=== PATIENT | female | born 1975 | race Hispanic/Latino ===

== ENCOUNTER 2022-01-15 16:43 | Inpatient (IN) | payer MEDICAID, OTHER ==
[~2022-01-15] VITALS: Ht 157.5 cm; Wt 144.7 kg
[2022-01-15 17:31] LABS: APPEARANCE,URINE Clear (CLEAR); BILIRUBIN,URINE Negative (NEGATIVE); COLOR,URINE Yellow (YELLOW); GLUCOSE, URINE (UA) >=1000 mg/dL (NEGATIVE); KETONES,URINE Trace mg/dL (NEGATIVE); LEUKOCYTE ESTERASE ,URINE Small (NEGATIVE); NITRATE,URINE Negative (NEGATIVE); OCCULT BLOOD,URINE Trace (NEGATIVE); PH,URINE 6.5 (5.0-8.0); PROTEIN,URINE Trace mg/dL (NEGATIVE)
[2022-01-15 17:35] LABS: BASOPHILS % (AUTO) 0.3 % (0.0-5.0); LYMPHOCYTES % (AUTO) 17.8 % (21.0-51.0); MEAN CORPUSCULAR HEMOGLOBIN 20.2 pg (27.0-33.0); MEAN CORPUSCULAR HGB CONC 29.2 g/dL (32.0-36.0); MEAN CORPUSCULAR VOLUME 69.4 fL (79-99); MONOCYTES % (AUTO) 5.7 % (3.0-13.0); NEUTROPHILS % (AUTO) 74.9 % (40.0-77.0); PLATELET COUNT (AUTO) 350 K/uL (130-400); RED BLOOD CELL COUNT(AUTO) 5.19 MIL/uL (4.00-5.50); RED CELL DISTRIBUTION WIDTH 21.7 % (11.0-15.5); WHITE BLOOD COUNT (AUTO) 15.2 K/uL (4.8-10.8)
[2022-01-15 17:41] LABS: RBC,URINE 0-1 /HPF (0-1)
[2022-01-15 17:43] LABS: BACTERIA,URINE Few /HPF (None Seen); SQUAMOUS EPITHELIAL CELL,UR Few /HPF (0-2)
[2022-01-15 17:54] LABS: ALBUMIN 2.9 g/dL (3.5-5.0); BILIRUBIN,TOTAL 0.3 mg/dL (0.2-1.0); POTASSIUM 3.8 mmol/L (3.5-5.1); TOTAL PROTEIN, SERUM 7.5 g/dL (6.0-8.3)
[2022-01-15] MEDS ORDERED: MORPHINE 4 MG SYG IM ONE (18:00)
[2022-01-15] MEDS ORDERED: IBUPROFEN 100 MG/5 ML SUSP UDCUP ONE (20:01)
[2022-01-15] MEDS: ZOSYN 3.375GM +NS 50ML IV SCH (21:30)
[2022-01-15] MEDS ORDERED: GLUCAGON 1MG KIT 1 MG ML IM PRN (21:30)
[2022-01-15] MEDS ORDERED: DEXTROSE 50%-WATER 50 ML DISP.SYRIN IV PRN (21:30)
[2022-01-15] MEDS ORDERED: ONDANSETRON 4MG INJ IV PRN (22:00)
[2022-01-15] MEDS ORDERED: 0.9%NACL 1000ML 1,000 ML IV SCH (22:00)
[2022-01-15] MEDS ORDERED: ACETAMINOPHEN 325 MG TAB PO PRN (22:00)
[2022-01-15] MEDS ORDERED: NITROGLYCERIN 0.4 MG SL TAB SL PRN (22:00)
[2022-01-15 22:29] LABS: CRP QUANTITATIVE 41.6 mg/L (0.00-9.0)
[2022-01-15 22:30] LABS: HEMOGLOBIN A1C 11.4 % (4.0-6.0)
[2022-01-15 22:34] LABS: INR 0.93 (0.85-1.15); PROTHROMBIN TIME 10.1 SEC (9.6-11.6)
[2022-01-15] MEDS: 0.9%NACL 1000ML 1,000 ML IV SCH (23:00)
[2022-01-15] MEDS: MORPHINE 4 MG SYG IV PRN (23:30)
[2022-01-16] VITALS (7 sets, daily range): BP systolic 119–131; BP diastolic 49–76
[2022-01-16] MEDS: MORPHINE 2 MG SYG IV PRN ×4 (03:44→20:19)
[2022-01-16] MEDS: ZOSYN 3.375GM +NS 50ML IV SCH ×3 (05:55→21:07)
[2022-01-16 06:16] LABS: HEMATOCRIT 30.8 % (36-48); MEAN CORPUSCULAR HEMOGLOBIN 20.5 pg (27.0-33.0); MEAN CORPUSCULAR HGB CONC 29.5 g/dL (32.0-36.0); MEAN CORPUSCULAR VOLUME 69.5 fL (79-99); PLATELET COUNT (AUTO) 331 K/uL (130-400); RED BLOOD CELL COUNT(AUTO) 4.43 MIL/uL (4.00-5.50); RED CELL DISTRIBUTION WIDTH 21.2 % (11.0-15.5); WHITE BLOOD COUNT (AUTO) 12.6 K/uL (4.8-10.8)
[2022-01-16 06:34] LABS: ALBUMIN 2.6 g/dL (3.5-5.0); BILIRUBIN,TOTAL 0.4 mg/dL (0.2-1.0); CREATININE 0.6 mg/dL (0.5-1.5); MAGNESIUM 1.5 mg/dL (1.80-2.40); POTASSIUM 3.5 mmol/L (3.5-5.1); TOTAL PROTEIN, SERUM 6.6 g/dL (6.0-8.3)
[2022-01-16 07:15] LABS: EOSINOPHILS % (MANUAL) 2 % (1-6); LYMPHOCYTES % (MANUAL) 21 % (22-44); MAN.DIFF COMMENT-IMPRESSION MANUAL DIFFERENTIAL; MONOCYTES % (MANUAL) 2 % (2-9); SEGMENTED NEUTROPHILS % 75 % (40-70)
[2022-01-16 07:27] LABS: PLATELET MORPHOLOGY COMMENT ADEQUATE
[2022-01-16] MEDS ORDERED: INSULIN HUMULIN R 100 UNIT/ML 3ML SQ SCH ×2 (07:30→17:00)
[2022-01-16] MEDS: FAMOTIDINE 20MG TAB PO SCH ×2 (08:21→21:07)
[2022-01-16] MEDS: ENOXAPARIN SODIUM 40 MG/0.4 ML SYRINGE SQ SCH (09:00)
[2022-01-16] MEDS: 0.9%NACL 1000ML 1,000 ML IV SCH ×2 (12:00→18:00)
[2022-01-16] MEDS ORDERED: POTASSIUM CHLORIDE 10% ELIXIR 20 MEQ/15 ML UDCUP PO PRN (15:30)
[2022-01-16] MEDS ORDERED: POTASSIUM CHLORIDE 20MEQ/100ML 100 ML IV PRN (15:30)
[2022-01-16] MEDS ORDERED: KCL 20 MEQ ERTAB PO PRN (15:30)
[2022-01-16] MEDS ORDERED: LIDOCAINE HCL-MPF 1% 2ML VIAL IV PRN (15:30)
[2022-01-16] MEDS: INSULIN HUMULIN R 100 UNIT/ML 3ML SQ SCH ×3 (17:28→20:29)
[2022-01-16] MEDS: MORPHINE 4 MG SYG IV PRN (18:58)
[2022-01-16] MEDS ORDERED: INSULIN GLARGINE 100 UNITS/ML 10 ML VIAL SQ SCH ×2 (21:00)
[2022-01-17] MEDS: MORPHINE 2 MG SYG IV PRN (02:57)
[2022-01-17 03:57] VITALS: BP 136/75
[2022-01-17] MEDS: 0.9%NACL 1000ML 1,000 ML IV SCH (04:00)
[2022-01-17 05:41] LABS: BASOPHILS % (AUTO) 0.3 % (0.0-5.0); EOSINOPHILS % (AUTO) 1.7 % (0.0-8.0); HEMATOCRIT 34.5 % (36-48); LYMPHOCYTES % (AUTO) 23.5 % (21.0-51.0); MEAN CORPUSCULAR HEMOGLOBIN 20.2 pg (27.0-33.0); MEAN CORPUSCULAR HGB CONC 28.7 g/dL (32.0-36.0); MEAN CORPUSCULAR VOLUME 70.3 fL (79-99); MONOCYTES % (AUTO) 6.1 % (3.0-13.0); PLATELET COUNT (AUTO) 309 K/uL (130-400); RED BLOOD CELL COUNT(AUTO) 4.91 MIL/uL (4.00-5.50); RED CELL DISTRIBUTION WIDTH 21.2 % (11.0-15.5); WHITE BLOOD COUNT (AUTO) 9.8 K/uL (4.8-10.8)
[2022-01-17] MEDS: ZOSYN 3.375GM +NS 50ML IV SCH (05:42)
[2022-01-17 05:52] LABS: ALBUMIN 2.7 g/dL (3.5-5.0); BILIRUBIN,TOTAL 0.3 mg/dL (0.2-1.0); CREATININE 0.6 mg/dL (0.5-1.5); POTASSIUM 3.4 mmol/L (3.5-5.1)
[2022-01-17] MEDS: INSULIN HUMULIN R 100 UNIT/ML 3ML SQ SCH ×4 (06:29→12:30)
[2022-01-17 08:00] VITALS: BP 149/77
[2022-01-17] MEDS ORDERED: LIDOCAINE HCL-MPF 1% 2ML VIAL IV PRN (08:30)
[2022-01-17] MEDS ORDERED: KCL 20 MEQ ERTAB PO PRN (08:30)
[2022-01-17] MEDS ORDERED: MAGNESIUM 2GM PREMIX 50ML 50 ML IV PRN (08:30)
[2022-01-17] MEDS ORDERED: POTASSIUM CHLORIDE 10% ELIXIR 20 MEQ/15 ML UDCUP PO PRN (08:30)
[2022-01-17] MEDS ORDERED: POTASSIUM CHLORIDE 20MEQ/100ML 100 ML IV PRN (08:30)
[2022-01-17] MEDS: FAMOTIDINE 20MG TAB PO SCH (08:51)
[2022-01-17] MEDS: ENOXAPARIN SODIUM 40 MG/0.4 ML SYRINGE SQ SCH (08:51)
[2022-01-17] MEDS ORDERED: AMOX-426 PO (09:11)
[2022-01-17 12:00] VITALS: BP 128/78
== END 2022-01-17 12:25 | disposition home or self-care (01) | DRG 872 ==
LOC: EDH 16:43 → EDHIP 16:44 → 3CH 01-16 00:20
PROVIDERS: ADMIT Hospitalist; ATTEND Hospitalist
DX: A41.9 Sepsis, unspecified organism (principal); N39.0 Urinary tract infection, site not specified; Z68.43 Body mass index [BMI] 50.0-59.9, adult; K52.9 Noninfective gastroenteritis and colitis, unspecified; K43.9 Ventral hernia without obstruction or gangrene; E11.65 Type 2 diabetes mellitus with hyperglycemia; F41.9 Anxiety disorder, unspecified; Z20.822 Contact with and (suspected) exposure to COVID-19; E66.01 Morbid (severe) obesity due to excess calories; Z82.49 Family history of ischemic heart disease and other diseases of the circulatory system; Z90.49 Acquired absence of other specified parts of digestive tract; Z83.3 Family history of diabetes mellitus
CPT/HCPCS: 36415; 74176; 76856; 80053; 81001; 82150; 82948; 83036; 83605; 83690; 83735; 84145; 85025; 85610; 85651; 86140; 87040; 87088; 87635; 93005; G0378; J1650; J1815; J2270; J2543; J3475

== ENCOUNTER 2022-01-22 15:01 | Emergency (ER) | payer OTHER ==
[~2022-01-22] VITALS: Ht 157.5 cm; Wt 140.6 kg
[~2022-01-22 15:01] MED LIST: AMOX-426 PO
[2022-01-22 17:25] LABS: APPEARANCE,URINE Clear (CLEAR); BILIRUBIN,URINE Negative (NEGATIVE); COLOR,URINE Yellow (YELLOW); GLUCOSE, URINE (UA) >=1000 mg/dL (NEGATIVE); KETONES,URINE Trace mg/dL (NEGATIVE); LEUKOCYTE ESTERASE ,URINE Negative (NEGATIVE); NITRATE,URINE Negative (NEGATIVE); OCCULT BLOOD,URINE Negative (NEGATIVE); PH,URINE 6.5 (5.0-8.0); PROTEIN,URINE Negative (NEGATIVE); UROBILINOGEN,URINE 0.2 mg/dL (0.2-1.0)
[2022-01-22 17:31] LABS: HCG,QUALITATIVE URINE NEGATIVE (NEGATIVE)
[2022-01-22 17:41] LABS: BASOPHILS % (AUTO) 0.4 % (0.0-5.0); EOSINOPHILS % (AUTO) 1.3 % (0.0-8.0); HEMATOCRIT 35.4 % (36-48); LYMPHOCYTES % (AUTO) 25.3 % (21.0-51.0); MEAN CORPUSCULAR HEMOGLOBIN 20.6 pg (27.0-33.0); MEAN CORPUSCULAR HGB CONC 29.4 g/dL (32.0-36.0); MEAN CORPUSCULAR VOLUME 70.1 fL (79-99); MONOCYTES % (AUTO) 5.1 % (3.0-13.0); NEUTROPHILS % (AUTO) 67.5 % (40.0-77.0); PLATELET COUNT (AUTO) 355 K/uL (130-400); RED BLOOD CELL COUNT(AUTO) 5.05 MIL/uL (4.00-5.50); RED CELL DISTRIBUTION WIDTH 21.4 % (11.0-15.5); WHITE BLOOD COUNT (AUTO) 11.2 K/uL (4.8-10.8)
[2022-01-22 17:43] LABS: BACTERIA,URINE Rare /HPF (None Seen); RBC,URINE 0-1 /HPF (0-1); SQUAMOUS EPITHELIAL CELL,UR Few /HPF (0-2); WBC,URINE 0-1 /HPF (0-1)
[2022-01-22 17:57] LABS: CREATININE 0.6 mg/dL (0.5-1.5); POTASSIUM 3.5 mmol/L (3.5-5.1); TOTAL PROTEIN, SERUM 7.3 g/dL (6.0-8.3)
[2022-01-22] MEDS ORDERED: KETOROLAC 30MG VIAL (30MG/ML) IVP ONE (18:30)
[2022-01-22] MEDS ORDERED: 0.9%NACL 1000ML 1,000 ML IV ONE (19:00)
[2022-01-22] MEDS ORDERED: IBUP-1493 PO (19:47)
[2022-01-22 20:01] VITALS: BP 142/59
== END 2022-01-22 20:43 | disposition home or self-care (01) ==
LOC: EDH 15:01
DX: K43.9 Ventral hernia without obstruction or gangrene (principal); E11.9 Type 2 diabetes mellitus without complications; Z79.1 Long term (current) use of non-steroidal anti-inflammatories (NSAID)
CPT/HCPCS: 99284; 74176; 96374; 96361; 80053; 85025; 82948; 81001; 81025; 36415; J7030; J1885

== ENCOUNTER 2022-05-18 21:06 | Emergency (ER) | payer OTHER ==
[~2022-05-18] VITALS: Ht 157.5 cm; Wt 145.1 kg
[~2022-05-18 21:06] MED LIST changes: +IBUP-1493 PO
[2022-05-18 21:08] VITALS: BP 141/87
== END 2022-05-18 22:11 | disposition home or self-care (01) ==
LOC: EDH 21:06
DX: K42.9 Umbilical hernia without obstruction or gangrene (principal); E11.9 Type 2 diabetes mellitus without complications; Z98.890 Other specified postprocedural states; Z79.899 Other long term (current) drug therapy

== ENCOUNTER 2022-06-24 16:21 | Inpatient (IN) | payer OTHER ==
[~2022-06-24] VITALS: Ht 167.6 cm; Wt 136.1 kg
[2022-06-24 17:08] LABS: BASOPHILS % (AUTO) 0.2 % (0.0-5.0); EOSINOPHILS % (AUTO) 1.4 % (0.0-8.0); HEMATOCRIT 39.6 % (36-48); LYMPHOCYTES % (AUTO) 20.9 % (21.0-51.0); MEAN CORPUSCULAR HEMOGLOBIN 23.2 pg (27.0-33.0); MEAN CORPUSCULAR HGB CONC 30.6 g/dL (32.0-36.0); MEAN CORPUSCULAR VOLUME 75.9 fL (79-99); MONOCYTES % (AUTO) 5.5 % (3.0-13.0); NEUTROPHILS % (AUTO) 71.6 % (40.0-77.0); PLATELET COUNT (AUTO) 373 K/uL (130-400); RED BLOOD CELL COUNT(AUTO) 5.22 MIL/uL (4.00-5.50); RED CELL DISTRIBUTION WIDTH 17.8 % (11.0-15.5); WHITE BLOOD COUNT (AUTO) 14.8 K/uL (4.8-10.8)
[2022-06-24 17:19] LABS: APPEARANCE,URINE CLOUDY (CLEAR); BILIRUBIN,URINE NEGATIVE (NEGATIVE); COLOR,URINE LIGHT-YELLOW (YELLOW); GLUCOSE, URINE (UA) NEGATIVE (NEGATIVE); KETONES,URINE NEGATIVE (NEGATIVE); LEUKOCYTE ESTERASE ,URINE 75 Leu/uL (NEGATIVE); NITRATE,URINE NEGATIVE (NEGATIVE); OCCULT BLOOD,URINE NEGATIVE (NEGATIVE); PROTEIN,URINE NEGATIVE (NEGATIVE); UROBILINOGEN,URINE 0.2 mg/dL (0.2-1.0)
[2022-06-24 17:21] LABS: CREATININE 0.6 mg/dL (0.5-1.5); POTASSIUM 3.9 mmol/L (3.5-5.1)
[2022-06-24 17:26] LABS: ALBUMIN 3.2 g/dL (3.5-5.0); TOTAL PROTEIN, SERUM 7.5 g/dL (6.0-8.3)
[2022-06-24 17:31] LABS: MUCUS,URINE RARE LPF (None Seen); OTHER CASTS, URINE 1 /LPF (None Seen); SQUAMOUS EPITHELIAL CELL,UR MOD /HPF (0-2)
[2022-06-24] MEDS ORDERED: HYDROCODONE/ACETAMINOPHEN 5/325 MG TAB PO ONE (18:00)
[2022-06-24] MEDS ORDERED: 0.9%NACL 1000ML 1,000 ML IV ONE (18:30)
[2022-06-24] MEDS ORDERED: IOHEXOL 350 MG/ML 100ML INFUS..BTL IV ONE (18:57)
[2022-06-24] MEDS ORDERED: KETOROLAC 15MG/ML VIAL (15MG/ML) IV ONE (19:00)
[2022-06-24] MEDS ORDERED: ZOSYN 3.375GM +NS 50ML IV ONE (21:00)
[2022-06-24] MEDS ORDERED: MORPHINE 4 MG SYG IVP ONE (21:00)
[2022-06-24] MEDS ORDERED: ONDANSETRON 4MG INJ IV PRN (22:00)
[2022-06-24] MEDS ORDERED: MORPHINE 2 MG SYG IV PRN (22:00)
[2022-06-24] MEDS: LACTATED RINGERS 1000ML 1,000 ML IV SCH (23:45)
[2022-06-25 03:37] VITALS: BP 121/62
[2022-06-25] MEDS ORDERED: ACET500P24 PO (04:07)
[2022-06-25] MEDS ORDERED: SERT-439 PO (04:07)
[2022-06-25] MEDS ORDERED: TRAM50TA4 PO (04:07)
[2022-06-25] MEDS ORDERED: BACI1CAP14 PO (04:07)
[2022-06-25] MEDS ORDERED: MV-M1TAB20 PO (04:07)
[2022-06-25] MEDS ORDERED: CLON1TAB12 PO (04:07)
[2022-06-25] MEDS ORDERED: CALC-1290 PO (04:07)
[2022-06-25] MEDS: ZOSYN 3.375GM+NS 50ML 50 ML IV SCH ×3 (04:57→20:30)
[2022-06-25 07:01] LABS: BASOPHILS % (AUTO) 0.2 % (0.0-5.0); EOSINOPHILS % (AUTO) 2.1 % (0.0-8.0); HEMATOCRIT 36.8 % (36-48); LYMPHOCYTES % (AUTO) 25.2 % (21.0-51.0); MEAN CORPUSCULAR HGB CONC 29.6 g/dL (32.0-36.0); MEAN CORPUSCULAR VOLUME 77.8 fL (79-99); MONOCYTES % (AUTO) 6.6 % (3.0-13.0); NEUTROPHILS % (AUTO) 65.5 % (40.0-77.0); PLATELET COUNT (AUTO) 319 K/uL (130-400); RED BLOOD CELL COUNT(AUTO) 4.73 MIL/uL (4.00-5.50); WHITE BLOOD COUNT (AUTO) 10.1 K/uL (4.8-10.8)
[2022-06-25 07:11] LABS: CREATININE 0.6 mg/dL (0.5-1.5); MAGNESIUM 1.7 mg/dL (1.80-2.40); PHOSPHORUS 4.6 mg/dL (2.5-4.9)
[2022-06-25 07:12] LABS: INR 0.93 (0.85-1.15); PROTHROMBIN TIME 10.1 SEC (9.6-11.6)
[2022-06-25 07:13] LABS: PARTIAL THROMBOPLASTIN TIME 26.2 SEC (26.3-35.5)
[2022-06-25 07:19] VITALS: BP 97/69
[2022-06-25] MEDS: FAMOTIDINE 20MG VIAL IV SCH ×2 (07:58→20:30)
[2022-06-25] MEDS: MORPHINE 4 MG SYG IV PRN ×3 (07:59→18:56)
[2022-06-25] MEDS ORDERED: MAGNESIUM 2GM PREMIX 50ML 50 ML IV SCH (08:00)
[2022-06-25 11:54] VITALS: BP 105/45
[2022-06-25] MEDS ORDERED: FLU VACC QS2022-23(6MOS UP)/PF 60 MCG/0.5 ML ML IM ONE ×2 (12:00→18:13)
[2022-06-25 15:38] VITALS: BP 125/67
[2022-06-25] MEDS: LACTATED RINGERS 1000ML 1,000 ML IV SCH (17:23)
[2022-06-25] MEDS ORDERED: LACTULOSE 20 GM/30 ML UDCUP PO SCH (17:30)
[2022-06-25 19:29] VITALS: BP 147/77
[2022-06-25] MEDS ORDERED: LACTULOSE 20 GM/30 ML UDCUP PO ONE (23:00)
[2022-06-25 23:28] VITALS: BP 135/80
[2022-06-26] MEDS: MORPHINE 4 MG SYG IV PRN ×2 (01:12→11:21)
[2022-06-26 03:31] VITALS: BP 131/75
[2022-06-26] MEDS: ZOSYN 3.375GM+NS 50ML 50 ML IV SCH ×2 (05:01→13:00)
[2022-06-26] MEDS: LACTATED RINGERS 1000ML 1,000 ML IV SCH (05:06)
[2022-06-26 05:54] LABS: BASOPHILS % (AUTO) 0.3 % (0.0-5.0); EOSINOPHILS % (AUTO) 1.7 % (0.0-8.0); HEMATOCRIT 34.1 % (36-48); LYMPHOCYTES % (AUTO) 19.9 % (21.0-51.0); MEAN CORPUSCULAR HEMOGLOBIN 23.5 pg (27.0-33.0); MEAN CORPUSCULAR HGB CONC 31.4 g/dL (32.0-36.0); MEAN CORPUSCULAR VOLUME 74.9 fL (79-99); MONOCYTES % (AUTO) 6.4 % (3.0-13.0); NEUTROPHILS % (AUTO) 71.4 % (40.0-77.0); PLATELET COUNT (AUTO) 321 K/uL (130-400); RED BLOOD CELL COUNT(AUTO) 4.55 MIL/uL (4.00-5.50); RED CELL DISTRIBUTION WIDTH 17.9 % (11.0-15.5); WHITE BLOOD COUNT (AUTO) 9.5 K/uL (4.8-10.8)
[2022-06-26 06:07] LABS: CREATININE 0.7 mg/dL (0.5-1.5); MAGNESIUM 1.9 mg/dL (1.80-2.40); POTASSIUM 4.1 mmol/L (3.5-5.1)
[2022-06-26 07:25] VITALS: BP 102/47
[2022-06-26] MEDS: FAMOTIDINE 20MG VIAL IV SCH (08:25)
[2022-06-26 12:01] VITALS: BP 123/62
[2022-06-26] MEDS ORDERED: LEVO-70 PO (15:12)
== END 2022-06-26 13:05 | disposition home or self-care (01) | DRG 394 ==
LOC: EDH 16:21 → EDHIP 16:22 → WSH 06-25 03:45 → UNDODISIN 06-26 13:05
PROVIDERS: ADMIT Hospitalist; ATTEND Hospitalist
DX: K43.6 Other and unspecified ventral hernia with obstruction, without gangrene (principal); N39.0 Urinary tract infection, site not specified; Z68.42 Body mass index [BMI] 45.0-49.9, adult; Z20.822 Contact with and (suspected) exposure to COVID-19; E11.9 Type 2 diabetes mellitus without complications; E66.01 Morbid (severe) obesity due to excess calories; I10 Essential (primary) hypertension; Z53.20 Procedure and treatment not carried out because of patient's decision for unspecified reasons; K80.20 Calculus of gallbladder without cholecystitis without obstruction; Z51.5 Encounter for palliative care; Z93.3 Colostomy status; Z86.73 Personal history of transient ischemic attack (TIA), and cerebral infarction without residual deficits; Z82.49 Family history of ischemic heart disease and other diseases of the circulatory system; Z23 Encounter for immunization
CPT/HCPCS: 36415; 74177; 76705; 80048; 80053; 81001; 81025; 83690; 83735; 84100; 85025; 85610; 85730; 86850; 86900; 86901; 87040; 87088; 87635; 93005; G0378; J1885; J2270; J2405; J2543; J3475; J3490; J7030; J7120; Q2035; Q9967

== ENCOUNTER 2022-08-21 00:26 | Observation (INO) | payer OTHER ==
[~2022-08-21] VITALS: Ht 157.5 cm; Wt 144.3 kg
[~2022-08-21 00:26] MED LIST changes: +ACET500P24 PO; +BACI1CAP14 PO; +CALC-1290 PO; +CLON1TAB12 PO; +LEVO-70 PO; +MV-M1TAB20 PO; +SERT-439 PO; +TRAM50TA4 PO
[2022-08-21 01:39] LABS: BASOPHILS % (AUTO) 0.1 % (0.0-5.0); HEMATOCRIT 38.6 % (36-48); LYMPHOCYTES % (AUTO) 24.4 % (21.0-51.0); MEAN CORPUSCULAR HEMOGLOBIN 22.9 pg (27.0-33.0); MEAN CORPUSCULAR HGB CONC 31.6 g/dL (32.0-36.0); MEAN CORPUSCULAR VOLUME 72.4 fL (79-99); MONOCYTES % (AUTO) 4.5 % (3.0-13.0); NEUTROPHILS % (AUTO) 69.6 % (40.0-77.0); PLATELET COUNT (AUTO) 383 K/uL (130-400); RED BLOOD CELL COUNT(AUTO) 5.33 MIL/uL (4.00-5.50); RED CELL DISTRIBUTION WIDTH 17.8 % (11.0-15.5); WHITE BLOOD COUNT (AUTO) 13.5 K/uL (4.8-10.8)
[2022-08-21 01:53] LABS: ALBUMIN 3.3 g/dL (3.5-5.0)
[2022-08-21 02:09] LABS: APPEARANCE,URINE CLEAR (CLEAR); BILIRUBIN,URINE NEGATIVE (NEGATIVE); COLOR,URINE COLORLESS (YELLOW); GLUCOSE, URINE (UA) >=1000 mg/dL (NEGATIVE); KETONES,URINE NEGATIVE (NEGATIVE); LEUKOCYTE ESTERASE ,URINE NEGATIVE Leu/uL (NEGATIVE); NITRATE,URINE NEGATIVE (NEGATIVE); OCCULT BLOOD,URINE NEGATIVE (NEGATIVE); PROTEIN,URINE NEGATIVE (NEGATIVE); UROBILINOGEN,URINE 0.2 mg/dL (0.2-1.0)
[2022-08-21 02:12] LABS: RBC,URINE 0-1 /HPF (0-1); SQUAMOUS EPITHELIAL CELL,UR RARE /HPF (0-2); WBC,URINE 0-1 /HPF (0-1)
[2022-08-21] MEDS ORDERED: 0.9%NACL 1000ML 1,000 ML IV ONE (02:30)
[2022-08-21] MEDS ORDERED: KETOROLAC 60 MG VIAL (30MG/ML) IM ONE (03:00)
[2022-08-21] MEDS ORDERED: INSULIN HUMULIN R 100 UNIT/ML 3ML IV ONE ×2 (03:30→05:30)
[2022-08-21] MEDS ORDERED: POTASSIUM CHLORIDE 20MEQ/100ML 100 ML IV PRN (05:30)
[2022-08-21] MEDS ORDERED: KETOROLAC 30MG VIAL (30MG/ML) IVP PRN (05:30)
[2022-08-21] MEDS ORDERED: LIDOCAINE HCL-MPF 1% 2ML VIAL IV PRN (05:30)
[2022-08-21] MEDS ORDERED: ONDANSETRON 4MG INJ IV PRN (05:30)
[2022-08-21 07:19] LABS: INR 0.93 (0.85-1.15); PROTHROMBIN TIME 9.7 SEC (9.6-11.6)
[2022-08-21 07:20] LABS: PARTIAL THROMBOPLASTIN TIME 23.8 SEC (26.3-35.5)
[2022-08-21 07:23] LABS: MAGNESIUM 1.5 mg/dL (1.80-2.40)
[2022-08-21] MEDS: LACTATED RINGERS 1000ML 1,000 ML IV SCH ×2 (07:31→22:38)
[2022-08-21] MEDS: INSULIN HUMULIN R 100 UNIT/ML 3ML SQ SCH ×4 (07:40→21:00)
[2022-08-21] MEDS ORDERED: HYDROMORPHONE 0.5 MG SYG (0.5MG/0.5ML) IVP SCH (08:00)
[2022-08-21 08:05] LABS: HEMOGLOBIN A1C 10.2 % (4.0-6.0)
[2022-08-21] MEDS: FAMOTIDINE 20MG VIAL IV SCH ×2 (08:25→21:34)
[2022-08-21] MEDS: ENOXAPARIN SODIUM 40 MG/0.4 ML SYRINGE SQ SCH (08:25)
[2022-08-21] MEDS: MAGNESIUM 2GM PREMIX 50ML 50 ML IV PRN (10:42)
[2022-08-21 21:47] VITALS: BP 148/93
[2022-08-22] VITALS: BP 123/64
[2022-08-22 04:00] VITALS: BP 124/65
[2022-08-22 05:01] LABS: BASOPHILS % (AUTO) 0.3 % (0.0-5.0); EOSINOPHILS % (AUTO) 1.8 % (0.0-8.0); HEMATOCRIT 34.2 % (36-48); LYMPHOCYTES % (AUTO) 24.3 % (21.0-51.0); MEAN CORPUSCULAR HEMOGLOBIN 22.7 pg (27.0-33.0); MEAN CORPUSCULAR HGB CONC 30.4 g/dL (32.0-36.0); MEAN CORPUSCULAR VOLUME 74.7 fL (79-99); MONOCYTES % (AUTO) 4.8 % (3.0-13.0); NEUTROPHILS % (AUTO) 68.5 % (40.0-77.0); PLATELET COUNT (AUTO) 323 K/uL (130-400); RED BLOOD CELL COUNT(AUTO) 4.58 MIL/uL (4.00-5.50); RED CELL DISTRIBUTION WIDTH 17.5 % (11.0-15.5); WHITE BLOOD COUNT (AUTO) 9.7 K/uL (4.8-10.8)
[2022-08-22 05:14] LABS: CREATININE 0.6 mg/dL (0.5-1.5); MAGNESIUM 1.7 mg/dL (1.80-2.40); POTASSIUM 3.5 mmol/L (3.5-5.1)
[2022-08-22] MEDS: INSULIN HUMULIN R 100 UNIT/ML 3ML SQ SCH (05:54)
[2022-08-22] MEDS: MAGNESIUM 2GM PREMIX 50ML 50 ML IV PRN (06:35)
[2022-08-22 08:00] VITALS: BP 132/73
[2022-08-22] MEDS: ENOXAPARIN SODIUM 40 MG/0.4 ML SYRINGE SQ SCH (09:00)
[2022-08-22] MEDS ORDERED: LACTULOSE 20 GM/30 ML UDCUP PO SCH (09:00)
[2022-08-22] MEDS: FAMOTIDINE 20MG VIAL IV SCH (09:17)
[2022-08-22] MEDS ORDERED: LEVO-70 PO (09:47)
[2022-08-23] MEDS ORDERED: MAGNESIUM OXIDE 400 MG TABLET PO SCH (09:00)
== END 2022-08-22 13:05 | disposition home or self-care (01) ==
LOC: EDH 00:26 → EDHIP 00:27 → INTOOBSV 00:27 → 4DH 21:39
PROVIDERS: ADMIT Internal Medicine; ATTEND Internal Medicine
DX: R10.9 Unspecified abdominal pain (principal); Z20.822 Contact with and (suspected) exposure to COVID-19; E11.65 Type 2 diabetes mellitus with hyperglycemia; D72.829 Elevated white blood cell count, unspecified; K43.9 Ventral hernia without obstruction or gangrene; E66.01 Morbid (severe) obesity due to excess calories; K80.10 Calculus of gallbladder with chronic cholecystitis without obstruction; F41.9 Anxiety disorder, unspecified; Z51.5 Encounter for palliative care; Z86.73 Personal history of transient ischemic attack (TIA), and cerebral infarction without residual deficits; Z93.3 Colostomy status; Z79.899 Other long term (current) drug therapy; Z98.890 Other specified postprocedural states; Z68.43 Body mass index [BMI] 50.0-59.9, adult; Z79.4 Long term (current) use of insulin
CPT/HCPCS: 96376 ×2; 96372 ×2; 96361 ×2; 96365; 96366; 96375 ×2; 99284; 83036; 83735 ×2; 84100; 84484; 80053; 83690; 85025 ×2; 85610; 85730; 86850; 86900; 86901; 87040 ×2; 82948 ×7; 81001; 81025; 36415 ×2; 87635; 74018; 74176; 78226; 93005; 80048; G0378 ×22; J3475 ×2; J7120 ×2; J3490 ×3; J7030; J1885 ×3; J1650; J1815 ×3; J1170; A9537

== ENCOUNTER 2022-08-23 14:16 | Observation (INO) | payer OTHER ==
[~2022-08-23] VITALS: Ht 157.5 cm; Wt 144.1 kg
[~2022-08-23 14:16] MED LIST changes: -AMOX-426 PO
[2022-08-23 15:53] LABS: BASOPHILS % (AUTO) 0.3 % (0.0-5.0); LYMPHOCYTES % (AUTO) 21.3 % (21.0-51.0); MEAN CORPUSCULAR HEMOGLOBIN 22.6 pg (27.0-33.0); MEAN CORPUSCULAR HGB CONC 30.6 g/dL (32.0-36.0); MEAN CORPUSCULAR VOLUME 73.8 fL (79-99); MONOCYTES % (AUTO) 5.5 % (3.0-13.0); NEUTROPHILS % (AUTO) 71.5 % (40.0-77.0); PLATELET COUNT (AUTO) 299 K/uL (130-400); RED BLOOD CELL COUNT(AUTO) 4.61 MIL/uL (4.00-5.50); RED CELL DISTRIBUTION WIDTH 17.6 % (11.0-15.5); WHITE BLOOD COUNT (AUTO) 11.1 K/uL (4.8-10.8)
[2022-08-23 15:54] LABS: APPEARANCE,URINE CLEAR (CLEAR); BILIRUBIN,URINE NEGATIVE (NEGATIVE); COLOR,URINE YELLOW (YELLOW); GLUCOSE, URINE (UA) >=1000 mg/dL (NEGATIVE); KETONES,URINE 10 mg/dL (NEGATIVE); LEUKOCYTE ESTERASE ,URINE NEGATIVE Leu/uL (NEGATIVE); NITRATE,URINE NEGATIVE (NEGATIVE); OCCULT BLOOD,URINE NEGATIVE (NEGATIVE); PROTEIN,URINE 50 mg/dL (NEGATIVE); UROBILINOGEN,URINE 0.2 mg/dL (0.2-1.0)
[2022-08-23 16:00] LABS: HCG,QUALITATIVE URINE NEGATIVE (NEGATIVE)
[2022-08-23 16:01] LABS: MUCUS,URINE FEW LPF (None Seen); SQUAMOUS EPITHELIAL CELL,UR RARE /HPF (0-2)
[2022-08-23 16:03] LABS: CREATININE 0.7 mg/dL (0.5-1.5); POTASSIUM 3.5 mmol/L (3.5-5.1)
[2022-08-23 16:09] LABS: ALBUMIN 2.8 g/dL (3.5-5.0); TOTAL PROTEIN, SERUM 6.8 g/dL (6.0-8.3)
[2022-08-23] MEDS ORDERED: IOHEXOL 350 MG/ML 100ML INFUS..BTL IV ONE (17:00)
[2022-08-23] MEDS ORDERED: KETOROLAC 30MG VIAL (30MG/ML) IVP ONE (18:30)
[2022-08-23] MEDS ORDERED: MAGNESIUM 2GM PREMIX 50ML 50 ML IV PRN (19:30)
[2022-08-23] MEDS ORDERED: ONDANSETRON 4MG INJ IV PRN (19:30)
[2022-08-23] MEDS ORDERED: LACTATED RINGERS 1000ML 1,000 ML IV SCH (19:30)
[2022-08-23] MEDS ORDERED: POTASSIUM CHLORIDE 20MEQ/100ML 100 ML IV PRN (19:30)
[2022-08-23] MEDS ORDERED: LIDOCAINE HCL-MPF 1% 2ML VIAL IV PRN (19:30)
[2022-08-23] MEDS: FAMOTIDINE 20MG VIAL IV SCH (20:47)
[2022-08-23] MEDS: INSULIN HUMULIN R 100 UNIT/ML 3ML SQ SCH (20:47)
[2022-08-23] MEDS: KETOROLAC 30MG VIAL (30MG/ML) IVP PRN (20:47)
[2022-08-23 22:15] VITALS: BP 132/90
[2022-08-24 03:22] VITALS: BP 150/84
[2022-08-24] MEDS: KETOROLAC 30MG VIAL (30MG/ML) IVP PRN (04:29)
[2022-08-24 05:15] LABS: BASOPHILS % (AUTO) 0.3 % (0.0-5.0); EOSINOPHILS % (AUTO) 2.3 % (0.0-8.0); HEMATOCRIT 32.8 % (36-48); LYMPHOCYTES % (AUTO) 30.5 % (21.0-51.0); MEAN CORPUSCULAR HEMOGLOBIN 22.8 pg (27.0-33.0); MEAN CORPUSCULAR HGB CONC 31.1 g/dL (32.0-36.0); MEAN CORPUSCULAR VOLUME 73.2 fL (79-99); NEUTROPHILS % (AUTO) 59.8 % (40.0-77.0); PLATELET COUNT (AUTO) 300 K/uL (130-400); RED BLOOD CELL COUNT(AUTO) 4.48 MIL/uL (4.00-5.50); RED CELL DISTRIBUTION WIDTH 17.8 % (11.0-15.5)
[2022-08-24 05:27] LABS: INR 0.94 (0.85-1.15); PROTHROMBIN TIME 10.3 SEC (9.6-11.6)
[2022-08-24 05:28] LABS: PARTIAL THROMBOPLASTIN TIME 24.8 SEC (26.3-35.5)
[2022-08-24 05:31] LABS: CREATININE 0.5 mg/dL (0.5-1.5); MAGNESIUM 1.7 mg/dL (1.80-2.40); PHOSPHORUS 4.5 mg/dL (2.5-4.9); POTASSIUM 3.5 mmol/L (3.5-5.1)
[2022-08-24 05:46] LABS: HEMOGLOBIN A1C 10.2 % (4.0-6.0)
[2022-08-24] MEDS: INSULIN HUMULIN R 100 UNIT/ML 3ML SQ SCH ×2 (06:27→14:18)
[2022-08-24 08:00] VITALS: BP 143/86
[2022-08-24] MEDS ORDERED: ENOXAPARIN SODIUM 40 MG/0.4 ML SYRINGE SQ SCH (09:00)
[2022-08-24] MEDS: FAMOTIDINE 20MG VIAL IV SCH (10:29)
[2022-08-24 12:01] VITALS: BP 152/93
[2022-08-24] MEDS ORDERED: INSULIN GLARGINE 100 UNITS/ML 10 ML VIAL SQ SCH (21:00)
== END 2022-08-24 17:30 | disposition home or self-care (01) ==
LOC: EDH 14:16 → INTOOBSV 18:37 → EDHIP 18:37 → 3AH 21:48
PROVIDERS: ADMIT Internal Medicine; ATTEND Internal Medicine
DX: K80.20 Calculus of gallbladder without cholecystitis without obstruction (principal); Z20.822 Contact with and (suspected) exposure to COVID-19; E11.65 Type 2 diabetes mellitus with hyperglycemia; D72.829 Elevated white blood cell count, unspecified; K42.9 Umbilical hernia without obstruction or gangrene; K43.2 Incisional hernia without obstruction or gangrene; N83.202 Unspecified ovarian cyst, left side; Z51.5 Encounter for palliative care; Z86.73 Personal history of transient ischemic attack (TIA), and cerebral infarction without residual deficits; Z93.3 Colostomy status; Z79.899 Other long term (current) drug therapy; Z98.890 Other specified postprocedural states
CPT/HCPCS: 96372 ×2; 96361 ×2; 96375; 99285; 80053; 83690; 85025 ×2; 87040 ×2; 82948 ×2; 83605; 81001; 81025; 36415 ×2; 87635; 74177; 93005; 84145; 96376; 96365; 96366; 83036; 83735; 84100; 80048; 85610; 85730; J7120; J3490 ×2; J1885 ×3; J1815 ×3; Q9967; G0378 ×5; J3475; J1650

== ENCOUNTER 2022-09-15 13:08 | Inpatient (IN) | payer OTHER ==
[~2022-09-15] VITALS: Ht 157.5 cm; Wt 142.4 kg
[~2022-09-15 13:08] MED LIST changes: -ACET500P24 PO; -CALC-1290 PO; -IBUP-1493 PO; -LEVO-70 PO; -TRAM50TA4 PO
[2022-09-15 13:45] LABS: BASOPHILS % (AUTO) 0.3 % (0.0-5.0); EOSINOPHILS % (AUTO) 0.8 % (0.0-8.0); HEMATOCRIT 36.9 % (36-48); LYMPHOCYTES % (AUTO) 17.7 % (21.0-51.0); MEAN CORPUSCULAR HEMOGLOBIN 22.8 pg (27.0-33.0); MEAN CORPUSCULAR HGB CONC 31.7 g/dL (32.0-36.0); MEAN CORPUSCULAR VOLUME 71.8 fL (79-99); MONOCYTES % (AUTO) 5.9 % (3.0-13.0); NEUTROPHILS % (AUTO) 74.1 % (40.0-77.0); PLATELET COUNT (AUTO) 338 K/uL (130-400); RED BLOOD CELL COUNT(AUTO) 5.14 MIL/uL (4.00-5.50); RED CELL DISTRIBUTION WIDTH 18.6 % (11.0-15.5)
[2022-09-15 13:56] LABS: CREATININE 0.8 mg/dL (0.5-1.5); POTASSIUM 4.2 mmol/L (3.5-5.1)
[2022-09-15 14:00] LABS: ALBUMIN 3.3 g/dL (3.5-5.0); TOTAL PROTEIN, SERUM 7.4 g/dL (6.0-8.3)
[2022-09-15 14:27] LABS: APPEARANCE,URINE CLEAR (CLEAR); BILIRUBIN,URINE NEGATIVE (NEGATIVE); COLOR,URINE LIGHT-YELLOW (YELLOW); GLUCOSE, URINE (UA) >=1000 mg/dL (NEGATIVE); KETONES,URINE 20 mg/dL (NEGATIVE); LEUKOCYTE ESTERASE ,URINE 250 Leu/uL (NEGATIVE); NITRATE,URINE NEGATIVE (NEGATIVE); OCCULT BLOOD,URINE SMALL (NEGATIVE); PROTEIN,URINE NEGATIVE (NEGATIVE); UROBILINOGEN,URINE 0.2 mg/dL (0.2-1.0)
[2022-09-15 14:30] LABS: BACTERIA,URINE RARE /HPF (None Seen); SQUAMOUS EPITHELIAL CELL,UR RARE /HPF (0-2); YEAST,URINE BUDDING FEW /HPF (None Seen)
[2022-09-15] MEDS ORDERED: IOHEXOL 350 MG/ML 100ML INFUS..BTL IV ONE (14:37)
[2022-09-15] MEDS ORDERED: OXYMETAZOLINE HCL SPRAY 15 ML BOTTLE ONE (15:54)
[2022-09-15] MEDS ORDERED: ONDANSETRON 4MG INJ IVP STA (16:20)
[2022-09-15] MEDS ORDERED: MORPHINE 2 MG SYG IVP STA (16:20)
[2022-09-15] MEDS ORDERED: ONDANSETRON 4MG INJ IV PRN (18:00)
[2022-09-15] MEDS ORDERED: HYDROMORPHONE 0.5 MG SYG (0.5MG/0.5ML) IVP PRN (18:00)
[2022-09-15 18:17] LABS: RETICULOCYTE % (AUTO) 2.62 % (0.42-2.23)
[2022-09-15 18:27] LABS: HEMOGLOBIN A1C 12.5 % (4.0-6.0)
[2022-09-15 18:44] LABS: INR 0.93 (0.85-1.15); PROTHROMBIN TIME 9.9 SEC (9.6-11.6)
[2022-09-15 18:45] LABS: PARTIAL THROMBOPLASTIN TIME 23.8 SEC (26.3-35.5)
[2022-09-15 18:47] LABS: % IRON SATURATION 4.1 % (22-44)
[2022-09-15] MEDS: LACTATED RINGERS 1000ML 1,000 ML IV SCH (19:11)
[2022-09-15] MEDS: HYDROMORPHONE 1 MG INJ IVP PRN ×2 (19:12→23:11)
[2022-09-15] MEDS: FAMOTIDINE 20MG VIAL IV SCH (20:15)
[2022-09-15] MEDS: ZOSYN 3.375GM+NS 50ML 50 ML IVPB SCH (20:15)
[2022-09-15 21:35] VITALS: BP 142/93
[2022-09-16] VITALS: BP 144/87
[2022-09-16] MEDS: INSULIN HUMULIN R 100 UNIT/ML 3ML SQ SCH ×5 (01:01→20:33)
[2022-09-16] MEDS: LACTATED RINGERS 1000ML 1,000 ML IV SCH ×4 (01:10→20:26)
[2022-09-16 04:00] VITALS: BP 150/78
[2022-09-16] MEDS: HYDROMORPHONE 1 MG INJ IVP PRN ×4 (04:39→20:35)
[2022-09-16] MEDS: ZOSYN 3.375GM+NS 50ML 50 ML IVPB SCH ×3 (04:43→21:00)
[2022-09-16] MEDS: FAMOTIDINE 20MG VIAL IV SCH ×2 (08:28→20:31)
[2022-09-16] MEDS ORDERED: BISACODYL 10 MG SUPP.RECT RC PRN (10:30)
[2022-09-16 12:00] VITALS: BP 133/84
[2022-09-16 16:00] VITALS: BP 157/72
[2022-09-16 20:00] VITALS: BP 152/70
[2022-09-17] VITALS: BP 117/56
[2022-09-17] MEDS: HYDROMORPHONE 1 MG INJ IVP PRN ×4 (01:35→14:43)
[2022-09-17] MEDS: LACTATED RINGERS 1000ML 1,000 ML IV SCH ×3 (03:20→16:40)
[2022-09-17 04:00] VITALS: BP 126/69
[2022-09-17] MEDS: ZOSYN 3.375GM+NS 50ML 50 ML IVPB SCH ×2 (04:51→12:28)
[2022-09-17] MEDS: INSULIN HUMULIN R 100 UNIT/ML 3ML SQ SCH ×3 (06:35→16:43)
[2022-09-17 07:30] VITALS: BP 125/67
[2022-09-17] MEDS: FAMOTIDINE 20MG VIAL IV SCH (09:50)
[2022-09-17 11:30] VITALS: BP 143/75
[2022-09-17 16:30] VITALS: BP 152/75
[2022-09-17] MEDS ORDERED: METF-446 PO (16:55)
== END 2022-09-17 17:30 | disposition home or self-care (01) | DRG 394 ==
LOC: EDH 13:08 → EDHIP 13:09 → 3BH 20:25
PROVIDERS: ADMIT Internal Medicine; ATTEND Internal Medicine
DX: K43.6 Other and unspecified ventral hernia with obstruction, without gangrene (principal); E87.1 Hypo-osmolality and hyponatremia; Z68.43 Body mass index [BMI] 50.0-59.9, adult; D72.829 Elevated white blood cell count, unspecified; E11.65 Type 2 diabetes mellitus with hyperglycemia; E86.1 Hypovolemia; D50.9 Iron deficiency anemia, unspecified; E66.9 Obesity, unspecified; Z79.84 Long term (current) use of oral hypoglycemic drugs; Z93.3 Colostomy status; Z98.891 History of uterine scar from previous surgery
CPT/HCPCS: 36415; 71045; 74018; 74177; 80053; 81001; 82728; 82746; 82948; 83036; 83540; 83550; 83690; 84100; 84145; 85025; 85045; 85610; 85730; 87088; G0378; J1170; J1815; J2405; J2543; J3490; J7120; Q9967

== ENCOUNTER 2022-10-19 21:22 | Emergency (ER) | payer OTHER ==
[~2022-10-19] VITALS: Ht 157.5 cm; Wt 145.1 kg
[~2022-10-19 21:22] MED LIST changes: +METF-446 PO
[2022-10-19 21:45] LABS: HCG,QUALITATIVE URINE NEGATIVE (NEGATIVE)
[2022-10-19 21:50] LABS: APPEARANCE,URINE CLEAR (CLEAR); BILIRUBIN,URINE NEGATIVE (NEGATIVE); COLOR,URINE LIGHT-YELLOW (YELLOW); GLUCOSE, URINE (UA) >=1000 mg/dL (NEGATIVE); KETONES,URINE NEGATIVE (NEGATIVE); LEUKOCYTE ESTERASE ,URINE 250 Leu/uL (NEGATIVE); NITRATE,URINE NEGATIVE (NEGATIVE); OCCULT BLOOD,URINE NEGATIVE (NEGATIVE); PROTEIN,URINE NEGATIVE (NEGATIVE); UROBILINOGEN,URINE 0.2 mg/dL (0.2-1.0)
[2022-10-19 22:06] LABS: BACTERIA,URINE FEW /HPF (None Seen); YEAST,URINE BUDDING FEW /HPF (None Seen)
[2022-10-19 22:06] LABS: BASOPHILS % (AUTO) 0.3 % (0.0-5.0); HEMATOCRIT 38.7 % (36-48); LYMPHOCYTES % (AUTO) 24.3 % (21.0-51.0); MEAN CORPUSCULAR VOLUME 73.3 fL (79-99); MONOCYTES % (AUTO) 5.4 % (3.0-13.0); NEUTROPHILS % (AUTO) 68.7 % (40.0-77.0); PLATELET COUNT (AUTO) 384 K/uL (130-400); RED BLOOD CELL COUNT(AUTO) 5.28 MIL/uL (4.00-5.50); RED CELL DISTRIBUTION WIDTH 19.4 % (11.0-15.5); WHITE BLOOD COUNT (AUTO) 11.6 K/uL (4.8-10.8)
[2022-10-19 22:24] LABS: ALBUMIN 3.3 g/dL (3.5-5.0); CREATININE 0.9 mg/dL (0.5-1.5); POTASSIUM 4.2 mmol/L (3.5-5.1); TOTAL PROTEIN, SERUM 8.2 g/dL (6.0-8.3)
[2022-10-19] MEDS ORDERED: 0.9%NACL 1000ML 1,000 ML IV ONE ×2 (22:30)
[2022-10-19] MEDS ORDERED: INSULIN HUMULIN R 100 UNIT/ML 3ML IV ONE (22:30)
[2022-10-19] MEDS ORDERED: MORPHINE 4 MG SYG IVP ONE (23:00)
[2022-10-20] MEDS ORDERED: KETOROLAC 60 MG VIAL (30MG/ML) IM ONE (00:30)
[2022-10-20] MEDS ORDERED: PHEN-847 PO (00:33)
[2022-10-20] MEDS ORDERED: MACR100 PO (00:33)
[2022-10-20] MEDS ORDERED: CEFTRIAXONE 1G VIAL IVP STA (00:35)
[2022-10-20] MEDS ORDERED: 0.9%NACL 1000ML 1,000 ML IV ONE (01:00)
[2022-10-20 03:57] VITALS: BP 145/86
== END 2022-10-20 04:09 | disposition home or self-care (01) ==
LOC: EDH 21:22
DX: N39.0 Urinary tract infection, site not specified (principal); E11.65 Type 2 diabetes mellitus with hyperglycemia; E87.20 Acidosis, unspecified; F41.9 Anxiety disorder, unspecified; F32.A Depression, unspecified; Z79.899 Other long term (current) drug therapy; Z79.84 Long term (current) use of oral hypoglycemic drugs; Z98.890 Other specified postprocedural states; Z90.49 Acquired absence of other specified parts of digestive tract
CPT/HCPCS: 99284; 96374; 96361 ×2; 96375 ×2; 82947; 80053; 85025; 87088; 81001; 81025; 36415 ×2; 96372; 83605 ×3; J1815; J2270; J7030; J0696; J1885

== ENCOUNTER 2022-10-31 15:57 | Inpatient (IN) | payer OTHER ==
[~2022-10-31] VITALS: Ht 157.5 cm; Wt 137.4 kg
[~2022-10-31 15:57] MED LIST changes: +MACR100 PO; +PHEN-847 PO
[2022-10-31 16:46] LABS: BASOPHILS % (AUTO) 0.3 % (0.0-5.0); EOSINOPHILS % (AUTO) 0.8 % (0.0-8.0); HEMATOCRIT 37.4 % (36-48); LYMPHOCYTES % (AUTO) 12.3 % (21.0-51.0); MEAN CORPUSCULAR HGB CONC 30.5 g/dL (32.0-36.0); MEAN CORPUSCULAR VOLUME 72.2 fL (79-99); NEUTROPHILS % (AUTO) 81.3 % (40.0-77.0); PLATELET COUNT (AUTO) 361 K/uL (130-400); RED BLOOD CELL COUNT(AUTO) 5.18 MIL/uL (4.00-5.50); RED CELL DISTRIBUTION WIDTH 18.7 % (11.0-15.5); WHITE BLOOD COUNT (AUTO) 14.3 K/uL (4.8-10.8)
[2022-10-31 17:11] LABS: APPEARANCE,URINE CLOUDY (CLEAR); BILIRUBIN,URINE NEGATIVE (NEGATIVE); COLOR,URINE LIGHT-YELLOW (YELLOW); GLUCOSE, URINE (UA) >=1000 mg/dL (NEGATIVE); KETONES,URINE 20 mg/dL (NEGATIVE); LEUKOCYTE ESTERASE ,URINE 500 Leu/uL (NEGATIVE); NITRATE,URINE NEGATIVE (NEGATIVE); PH,URINE 6.5 (5.0-8.0); PROTEIN,URINE 20 mg/dL (NEGATIVE); UROBILINOGEN,URINE 0.2 mg/dL (0.2-1.0)
[2022-10-31 17:14] LABS: BACTERIA,URINE FEW /HPF (None Seen); SQUAMOUS EPITHELIAL CELL,UR MOD /HPF (0-2); WBC,URINE 26-50 /HPF (0-1); YEAST,URINE BUDDING FEW /HPF (None Seen)
[2022-10-31 17:18] LABS: CREATININE 0.6 mg/dL (0.5-1.5); POTASSIUM 3.8 mmol/L (3.5-5.1)
[2022-10-31 17:22] LABS: ALBUMIN 3.2 g/dL (3.5-5.0); TOTAL PROTEIN, SERUM 7.7 g/dL (6.0-8.3)
[2022-10-31] MEDS ORDERED: INSULIN HUMULIN R 100 UNIT/ML 3ML IV ONE (17:30)
[2022-10-31] MEDS ORDERED: 0.9%NACL 1000ML 1,000 ML IV ONE (17:30)
[2022-10-31] MEDS ORDERED: CEFTRIAXONE 1G VIAL IVP SCH (18:00)
[2022-10-31] MEDS ORDERED: MORPHINE 4 MG SYG IM ONE (18:00)
[2022-10-31] MEDS ORDERED: ONDANSETRON 4MG INJ IVP ONE (18:00)
[2022-10-31] MEDS ORDERED: NITROGLYCERIN 0.4 MG SL TAB SL PRN (20:30)
[2022-10-31] MEDS ORDERED: ACETAMINOPHEN 325 MG TAB PO PRN (20:30)
[2022-10-31] MEDS ORDERED: ONDANSETRON 4MG INJ IV PRN (20:30)
[2022-10-31] MEDS ORDERED: GLUCAGON 1MG KIT 1 MG ML IM PRN (20:30)
[2022-10-31] MEDS ORDERED: DEXTROSE 50%-WATER 50 ML DISP.SYRIN IV PRN (20:30)
[2022-10-31] MEDS ORDERED: IOHEXOL 350 MG/ML 100ML INFUS..BTL IV ONE (20:38)
[2022-10-31 21:04] LABS: MAGNESIUM 1.5 mg/dL (1.80-2.40)
[2022-10-31] MEDS: MORPHINE 2 MG SYG IVP PRN (21:24)
[2022-10-31] MEDS: ZOSYN 3.375GM+NS 50ML 50 ML IVPB SCH (21:24)
[2022-10-31] MEDS: 0.9%NACL 1000ML 1,000 ML IV SCH (21:24)
[2022-10-31] MEDS: FAMOTIDINE 20MG VIAL IV SCH (21:26)
[2022-10-31] MEDS ORDERED: MORPHINE 2 MG SYG IVP PRN (21:30)
[2022-10-31] MEDS ORDERED: MAGNESIUM 2GM PREMIX 50ML 50 ML IV ONE (23:00)
[2022-11-01] VITALS (7 sets, daily range): BP systolic 108–142; BP diastolic 59–82
[2022-11-01] MEDS: INSULIN HUMULIN R 100 UNIT/ML 3ML SQ SCH ×4 (00:23→19:59)
[2022-11-01] MEDS: MORPHINE 2 MG SYG IVP PRN ×4 (01:22→20:45)
[2022-11-01] MEDS ORDERED: METF-446 PO (02:34)
[2022-11-01] MEDS: ACETAMINOPHEN 325 MG TAB PO PRN ×2 (03:57→15:40)
[2022-11-01] MEDS: ZOSYN 3.375GM+NS 50ML 50 ML IVPB SCH ×3 (04:00→20:45)
[2022-11-01 06:09] LABS: BASOPHILS % (AUTO) 0.4 % (0.0-5.0); EOSINOPHILS % (AUTO) 1.2 % (0.0-8.0); LYMPHOCYTES % (AUTO) 20.6 % (21.0-51.0); MEAN CORPUSCULAR HEMOGLOBIN 21.8 pg (27.0-33.0); MEAN CORPUSCULAR VOLUME 72.8 fL (79-99); MONOCYTES % (AUTO) 6.2 % (3.0-13.0); NEUTROPHILS % (AUTO) 71.2 % (40.0-77.0); PLATELET COUNT (AUTO) 255 K/uL (130-400); RED BLOOD CELL COUNT(AUTO) 4.81 MIL/uL (4.00-5.50); RED CELL DISTRIBUTION WIDTH 18.8 % (11.0-15.5); WHITE BLOOD COUNT (AUTO) 10.9 K/uL (4.8-10.8)
[2022-11-01] MEDS: 0.9%NACL 1000ML 1,000 ML IV SCH (06:12)
[2022-11-01 06:32] LABS: ALBUMIN 2.8 g/dL (3.5-5.0); CREATININE 0.6 mg/dL (0.5-1.5); MAGNESIUM 1.8 mg/dL (1.80-2.40); POTASSIUM 4.2 mmol/L (3.5-5.1); TOTAL PROTEIN, SERUM 6.9 g/dL (6.0-8.3)
[2022-11-01] MEDS: FAMOTIDINE 20MG VIAL IV SCH ×2 (10:38→20:45)
[2022-11-01] MEDS: ENOXAPARIN SODIUM 40 MG/0.4 ML SYRINGE SQ SCH (10:39)
[2022-11-02] MEDS: 0.9%NACL 1000ML 1,000 ML IV SCH ×3 (01:40→13:13)
[2022-11-02] MEDS: MORPHINE 2 MG SYG IVP PRN ×3 (02:55→15:34)
[2022-11-02 03:43] VITALS: BP 141/73
[2022-11-02] MEDS: ZOSYN 3.375GM+NS 50ML 50 ML IVPB SCH ×2 (04:21→13:14)
[2022-11-02 05:45] LABS: HEMATOCRIT 32.9 % (36-48); MEAN CORPUSCULAR HEMOGLOBIN 21.8 pg (27.0-33.0); MEAN CORPUSCULAR HGB CONC 29.8 g/dL (32.0-36.0); MEAN CORPUSCULAR VOLUME 73.3 fL (79-99); RED BLOOD CELL COUNT(AUTO) 4.49 MIL/uL (4.00-5.50); RED CELL DISTRIBUTION WIDTH 18.6 % (11.0-15.5); WHITE BLOOD COUNT (AUTO) 7.4 K/uL (4.8-10.8)
[2022-11-02] MEDS: INSULIN HUMULIN R 100 UNIT/ML 3ML SQ SCH ×3 (05:54→16:56)
[2022-11-02 05:58] LABS: ALBUMIN 2.4 g/dL (3.5-5.0); CREATININE 0.5 mg/dL (0.5-1.5); MAGNESIUM 1.5 mg/dL (1.80-2.40); POTASSIUM 3.4 mmol/L (3.5-5.1); TOTAL PROTEIN, SERUM 6.2 g/dL (6.0-8.3)
[2022-11-02] MEDS: FAMOTIDINE 20MG VIAL IV SCH (08:46)
[2022-11-02] MEDS: ENOXAPARIN SODIUM 40 MG/0.4 ML SYRINGE SQ SCH (08:46)
[2022-11-02 09:19] VITALS: BP 149/89
[2022-11-02] MEDS ORDERED: KCL 20 MEQ ERTAB PO ONE (11:30)
[2022-11-02] MEDS ORDERED: MAGNESIUM 2GM PREMIX 50ML 50 ML IV SCH (11:30)
[2022-11-02 12:40] VITALS: BP 144/89
[2022-11-02 16:26] VITALS: BP_SYST 153; BP_SYST 158; BP_DIAS 57; BP_DIAS 90
== END 2022-11-02 18:30 | disposition home or self-care (01) | DRG 872 ==
LOC: EDH 15:57 → EDHIP 15:58 → 3DH 11-01 01:40
PROVIDERS: ADMIT Internal Medicine; ATTEND Internal Medicine
DX: A41.9 Sepsis, unspecified organism (principal); N39.0 Urinary tract infection, site not specified; E87.1 Hypo-osmolality and hyponatremia; Z68.43 Body mass index [BMI] 50.0-59.9, adult; Z20.822 Contact with and (suspected) exposure to COVID-19; E78.2 Mixed hyperlipidemia; K80.20 Calculus of gallbladder without cholecystitis without obstruction; K76.0 Fatty (change of) liver, not elsewhere classified; F32.A Depression, unspecified; F41.9 Anxiety disorder, unspecified; K43.9 Ventral hernia without obstruction or gangrene; K43.2 Incisional hernia without obstruction or gangrene; E83.42 Hypomagnesemia; E66.01 Morbid (severe) obesity due to excess calories; E11.65 Type 2 diabetes mellitus with hyperglycemia; Z79.4 Long term (current) use of insulin; Z91.199 Patient's noncompliance with other medical treatment and regimen due to unspecified reason; Z93.3 Colostomy status
CPT/HCPCS: 36415; 74176; 74177; 80053; 80061; 81001; 82948; 83036; 83605; 83690; 83735; 84478; 85025; 85027; 87040; 87088; 87635; 93005; G0378; J0696; J1650; J1815; J2270; J2405; J2543; J3475; J3490; J7030; Q9967

== ENCOUNTER 2022-11-13 16:56 | Emergency (ER) | payer OTHER ==
[~2022-11-13] VITALS: Ht 167.6 cm; Wt 108.9 kg
[~2022-11-13 16:56] MED LIST changes: -BACI1CAP14 PO; -CLON1TAB12 PO; -MACR100 PO; -MV-M1TAB20 PO; -PHEN-847 PO; -SERT-439 PO
[2022-11-13 17:22] LABS: BASOPHILS % (AUTO) 0.3 % (0.0-5.0); EOSINOPHILS % (AUTO) 0.9 % (0.0-8.0); HEMATOCRIT 39.6 % (36-48); LYMPHOCYTES % (AUTO) 23.1 % (21.0-51.0); MEAN CORPUSCULAR HEMOGLOBIN 21.6 pg (27.0-33.0); MEAN CORPUSCULAR HGB CONC 30.3 g/dL (32.0-36.0); MEAN CORPUSCULAR VOLUME 71.2 fL (79-99); MONOCYTES % (AUTO) 5.8 % (3.0-13.0); NEUTROPHILS % (AUTO) 69.6 % (40.0-77.0); PLATELET COUNT (AUTO) 399 K/uL (130-400); RED BLOOD CELL COUNT(AUTO) 5.56 MIL/uL (4.00-5.50); RED CELL DISTRIBUTION WIDTH 19.4 % (11.0-15.5); WHITE BLOOD COUNT (AUTO) 11.8 K/uL (4.8-10.8)
[2022-11-13 17:35] LABS: CREATININE 0.7 mg/dL (0.5-1.5); POTASSIUM 3.9 mmol/L (3.5-5.1)
[2022-11-13 17:39] LABS: ALBUMIN 3.3 g/dL (3.5-5.0); TOTAL PROTEIN, SERUM 7.8 g/dL (6.0-8.3)
[2022-11-13] MEDS ORDERED: MORPHINE 4 MG SYG IM ONE (18:00)
[2022-11-13] MEDS ORDERED: ONDANSETRON 4MG INJ IVP ONE (18:00)
[2022-11-13 20:04] VITALS: BP 128/82
[2022-11-13] MEDS ORDERED: ONDA4TAB10 PO (20:21)
[2022-11-13] MEDS ORDERED: ACET-2123 PO (20:21)
[2022-11-13 20:35] LABS: APPEARANCE,URINE CLOUDY (CLEAR); BILIRUBIN,URINE NEGATIVE (NEGATIVE); COLOR,URINE LIGHT-YELLOW (YELLOW); GLUCOSE, URINE (UA) >=1000 mg/dL (NEGATIVE); KETONES,URINE NEGATIVE (NEGATIVE); LEUKOCYTE ESTERASE ,URINE 75 Leu/uL (NEGATIVE); NITRATE,URINE NEGATIVE (NEGATIVE); OCCULT BLOOD,URINE NEGATIVE (NEGATIVE); PH,URINE 6.5 (5.0-8.0); PROTEIN,URINE 10 mg/dL (NEGATIVE); UROBILINOGEN,URINE 0.2 mg/dL (0.2-1.0)
[2022-11-13] MEDS ORDERED: CEPH500B PO (20:40)
[2022-11-13 20:41] LABS: BACTERIA,URINE RARE /HPF (None Seen); MUCUS,URINE RARE LPF (None Seen); SQUAMOUS EPITHELIAL CELL,UR MOD /HPF (0-2)
== END 2022-11-13 21:25 | disposition home or self-care (01) ==
LOC: EDH 16:56
DX: K52.9 Noninfective gastroenteritis and colitis, unspecified (principal); N39.0 Urinary tract infection, site not specified; R11.2 Nausea with vomiting, unspecified; E11.9 Type 2 diabetes mellitus without complications; F41.9 Anxiety disorder, unspecified; F32.A Depression, unspecified; Z90.49 Acquired absence of other specified parts of digestive tract; Z79.84 Long term (current) use of oral hypoglycemic drugs; Z79.899 Other long term (current) drug therapy
CPT/HCPCS: 99284; 96374; 80053; 83690; 85025; 87088; 81001; 36415; 74018; 96372; J2405; J2270